=== PATIENT | female | born 1995 | race Two or more races ===

== ENCOUNTER 2017-10-06 19:01 | Emergency (ER) | payer BC ==
[2017-10-06 19:49] VITALS: BP 117/61; PULSE 78; TEMP 98.6; BMI 21.2
--- NOTE | 2017-10-06 19:58 | PDOC ---
History of Present Illness - General History Source: Patient Exam Limitations: No Limitations - History of Present Illness Initial Comments: 10/06/17 20:05 The patient is a 22 year old female, accompanied by boyfriend, with a past medical history of syncope who presents to the emergency department status post loss of consciousness. The patient states that she had a stressful encounter with her father that triggered her loss of consciousness. She denies any headache, dizziness, or chest pain leading up to her loss of consciousness. As per boyfriend patient was slightly short of breath prior to loss of consciousness. She reports one similar episodes in the past that was associated with a heavier than normal menstrual period. LMP was one month ago. Patient states that she is not . <Garry Lew - Last Filed: 10/06/17 20:34> - General History Source: Patient <David Kitchen - Last Filed: 10/06/17 21:36> - General Chief Complaint: Syncope/Near Syncope Stated Complaint: Syncope/Near Syncope Time Seen by Provider: 10/06/17 19:58 Past History <Garry Lew - Last Filed: 10/06/17 20:34> - Suicide/Smoking/Psychosocial Hx Smoking History: Never smoked Have you smoked in the past 12 months: No Information on smoking cessation initiated: No Hx Alcohol Use: No Drug/Substance Use Hx: No <David Kitchen - Last Filed: 10/06/17 21:36> - Past Medical History Allergies/Adverse Reactions: Allergies Allergy/AdvReac Type Severity Reaction Status Date / Time No Known Allergies Allergy Verified 10/06/17 19:49 Home Medications: Ambulatory Orders NK [No Known Home Medication] 10/06/17 Review of Systems - Review of Systems Able to Perform ROS?: Yes Comments:: CONSTITUTIONAL: Absent: fever, no chills, no fatigue EYES: Absent: visual changes ENT: Absent: ear pain, no sore throat CARDIOVASCULAR: Absent: chest pain, no palpitations RESPIRATORY: Absent: cough, no SOB GI: Absent: abdominal pain, no nausea, no vomiting, no constipation, no diarrhea GENITOURINARY: Absent: dysuria, no frequency, no hematuria MUSCULOSKELETAL: Absent: back pain, no arthralgia, no myalgia NEURO: (+) Loss of consciousness Absent: Headache SKIN: Absent: rash <Garry Lew - Last Filed: 10/06/17 20:34> *Physical Exam - Vital Signs Last Vital Signs Temp Pulse Resp BP Pulse Ox 98.6 F 78 19 117/61 100 10/06/17 19:46 10/06/17 19:46 10/06/17 19:46 10/06/17 19:46 10/06/17 19:46 - Physical Exam Comments: 10/06/17 20:07 GENERAL: Well-appearing, well-nourished. No apparent distress. HEENT: Normocephalic, atraumatic. PERRL, EOM intact. CARDIOVASCULAR: Normal S1, S2. Regular rate and rhythm. PULMONARY: Clear to auscultation bilaterally. ABDOMEN: Soft, non-distended, non-tender. EXTREMITIES: Normal ROM in all four extremities. No gross deformities. SKIN: Warm, dry. No rash NEUROLOGICAL: No focal neurological deficits. <Garry Lew - Last Filed: 10/06/17 20:34> - Vital Signs Last Vital Signs Temp Pulse Resp BP Pulse Ox 98.6 F 78 19 117/61 100 10/06/17 19:46 10/06/17 19:46 10/06/17 19:46 10/06/17 19:46 10/06/17 19:46 <David Kitchen - Last Filed: 10/06/17 21:36> Heart Score/ECG Review - ECG Impressions Comment:: 10/06/17 20:34 Normal sinus rhythm with sinus arrhythmia. Incomplete right bundle branch block. Borderline ECG. <Garry Lew - Last Filed: 10/06/17 20:34> ED Treatment Course - LABORATORY CBC & Chemistry Diagram: 10/06/17 20:15 10/06/17 20:15 <David Kitchen - Last Filed: 10/06/17 21:36> Medical Decision Making - Medical Decision Making 10/06/17 21:35 Dr. Kitchen: The scribe's documentation has been prepared under my direction and personally reviewed by me in its entirery. I confirm that the note above accurately reflects all work, treatment, procedures, and medical decision making performed by me. <David Kitchen - Last Filed: 10/06/17 21:36> *DC/Admit/Observation/Transfer - Attestations Scribe Attestion: 10/06/17 20:07 Documentation prepared by Garry Lew, acting as quality engineer medical device for David Kitchen DO. <Garry Lew - Last Filed: 10/06/17 20:34> - Discharge Dispostion Admit: No <David Kitchen - Last Filed: 10/06/17 21:36> Diagnosis at time of Disposition: Fainting Qualifiers: Syncope type: unspecified Qualified Code(s): R55 - Syncope and collapse - Discharge Dispostion Disposition: HOME Condition at time of disposition: Stable - Referrals Referrals: STAFF,NOT ON [Primary Care Provider] - Reynaldo Huntley MD [Staff Physician] - - Patient Instructions Printed Discharge Instructions: DI for Syncope in Adults (Fainting) Additional Instructions: Please follow up with the doctor provided or your doctor if symptoms continue. Return if any problems. Please eat often and hydrated well. - Post Discharge Activity
[2017-10-06 20:43] LABS: BASO % 0.6 % (0-2.0); EOS # 0.1 # (0-4.5); EOS % 1.5 % (0-4.5); LYMPH # 2.2 (8-40); MCH 30.7 pg (25.7-33.7); MCHC 33.4 g/dl (32.0-36.0); MEAN CELL VOLUME 91.9 fl (80-96); MEAN PLT VOLUME 8.7 fl (7.5-11.1); MONO # 0.3 # (3.8-10.2); NEUT # 3.1 # (42.8-82.8); NEUT % 54.3 % (42.8-82.8); PLATELET COUNT 245 K/MM3 (134-434); RDW 12.7 % (11.6-15.6); WHITE BLOOD COUNT 5.8 K/mm3 (4.0-10.0)
[2017-10-06 21:03] LABS: ALBUMIN 4.2 g/dl (3.4-5.0); ANION GAP 7 (8-16); CALCIUM 9.5 mg/dL (8.5-10.1); CO2 25 mmol/L (21-32); CREATININE 0.7 mg/dL (0.55-1.02); GLUCOSE,RANDOM 80 mg/dL (74-106); SGOT/AST 13 U/L (15-37); SGPT/ALT 18 U/L (12-78)
[2017-10-06 21:07] LABS: ALK PHOS 85 U/L (45-117); BILIRUBIN,TOTAL 0.4 mg/dL (0.2-1.0); CPK 108 IU/L (26-192); TOT PROT 8.5 g/dl (6.4-8.2); TROPONIN I < 0.02 ng/ml (0.00-0.05)
--- NOTE | 2017-10-07 13:49 | EKG ---
Test Reason : Blood Pressure : / mmHG Vent. Rate : 075 BPM Atrial Rate : 075 BPM P-R Int : 156 ms QRS Dur : 094 ms QT Int : 402 ms P-R-T Axes : 049 060 050 degrees QTc Int : 448 ms NORMAL SINUS RHYTHM WITH SINUS ARRHYTHMIA INCOMPLETE RIGHT BUNDLE BRANCH BLOCK NO PREVIOUS ECGS AVAILABLE Confirmed by TIMMY BREWER MD ([id number]) on 10/07/2017 1:48:59 PM Referred By: Confirmed By:TIMMY BREWER MD
== END 2017-10-06 21:51 | disposition home or self-care (01) ==
LOC: EDBD 19:01 → SUPCPDRO 19:01 → JER 19:01
DX: R55 Syncope and collapse (principal)
CPT/HCPCS: 36415; 80053; 82550; 84484; 84703; 85025; 93005; 93010; 99282-25